=== PATIENT | male | born 1975 | race African-American/Black ===

== ENCOUNTER 2016-03-03 21:15 | Inpatient (IN) | payer OTHER ==
[~2016-03-03] VITALS: Ht 160 cm; Wt 71.0 kg
[2016-03-03 21:34] VITALS: BP 118/68; TEMP 98.3
[2016-03-03] MEDS ORDERED: METFORMIN ER1000 MG PO (21:41)
[2016-03-03] MEDS ORDERED: CITALOPRAM20 MG PO (21:41)
[2016-03-03] MEDS ORDERED: LISI10TA11 PO (21:41)
[2016-03-03 22:03] LABS: PLATELET COUNT 295 K/uL (142-355)
[2016-03-03 22:14] LABS: POTASSIUM 4.4 mmol/L (3.6-5.2)
[2016-03-04] VITALS (23 sets, daily range): BP systolic 10–139; BP diastolic 51–73; TEMP 97–98.6; Ht 160 cm; Wt 71.0 kg
[2016-03-04 01:42] LABS: POTASSIUM 4.4 mmol/L (3.6-5.2)
[2016-03-04 04:05] LABS: POTASSIUM 3.4 mmol/L (3.6-5.2); SODIUM 138 mmol/L (136-145)
[2016-03-04 05:51] LABS: POTASSIUM 3.2 mmol/L (3.6-5.2); SODIUM 138 mmol/L (136-145)
[2016-03-04 08:25] LABS: POTASSIUM 3.4 mmol/L (3.6-5.2); SODIUM 140 mmol/L (136-145)
[2016-03-04 11:30] LABS: SODIUM 140 mmol/L (136-145)
[2016-03-05] VITALS (14 sets, daily range): BP systolic 102–129; BP diastolic 40–86; TEMP 97.8–98.2
[2016-03-05 08:10] LABS: PLATELET COUNT 211 K/uL (142-355)
[2016-03-05 08:25] LABS: POTASSIUM 3.4 mmol/L (3.6-5.2); SODIUM 141 mmol/L (136-145)
[2016-03-06] VITALS (9 sets, daily range): BP systolic 105–142; BP diastolic 50–79; TEMP 97.8–98.6
[2016-03-06 08:34] LABS: POTASSIUM 2.9 mmol/L (3.6-5.2); SODIUM 142 mmol/L (136-145)
[2016-03-06 09:33] LABS: PLATELET COUNT 172 K/uL (142-355)
[2016-03-06 15:26] LABS: POTASSIUM 2.8 mmol/L (3.6-5.2); SODIUM 138 mmol/L (136-145)
[2016-03-06 19:55] LABS: SODIUM 140 mmol/L (136-145)
[2016-03-06 22:33] LABS: POTASSIUM 3.2 mmol/L (3.6-5.2); SODIUM 144 mmol/L (136-145)
[2016-03-07] VITALS (13 sets, daily range): BP systolic 99–130; BP diastolic 56–103; TEMP 97.6–98
[2016-03-07 06:41] LABS: PLATELET COUNT 178 K/uL (142-355); POTASSIUM 2.7 mmol/L (3.6-5.2); SODIUM 137 mmol/L (136-145)
[2016-03-07 18:20] LABS: POTASSIUM 3.5 mmol/L (3.6-5.2); SODIUM 135 mmol/L (136-145)
[2016-03-08] VITALS: BP 131/80; TEMP 98
[2016-03-08 04:59] LABS: PLATELET COUNT 177 K/uL (142-355)
[2016-03-08 05:08] LABS: POTASSIUM 3.4 mmol/L (3.6-5.2); SODIUM 139 mmol/L (136-145)
[2016-03-08 12:00] VITALS: BP 139/80; BP 155/85; TEMP 97.6
== END 2016-03-08 14:15 | disposition home or self-care (01) | DRG 639 ==
LOC: ED 21:15 → ICU 03-04 01:12 → MED/SURG 03-05 14:59 → ICU 03-06 14:25 → MED/SURG 03-07 21:00
PROVIDERS: Emergency Medicine; Internal Medicine; ADMIT Specialist
DX: E13.10 Other specified diabetes mellitus with ketoacidosis without coma (principal); E87.6 Hypokalemia; R80.8 Other proteinuria; E83.39 Other disorders of phosphorus metabolism; E83.42 Hypomagnesemia
CPT/HCPCS: 36415; 36600; 80048; 80053; 80307; 81000; 81002; 82805; 82948; 82962; 83036; 83605; 83735; 84100; 85027; 94760; 96361; 96365; 96372; 96375; 99285; G0479; J1644; J1815; J3475; J3480; J3490